=== PATIENT | male | born 1980 | race Caucasian/White ===

== ENCOUNTER 2017-07-12 10:30 | Emergency (ER) | payer MEDICARE ==
[~2017-07-12] VITALS: Ht 162.6 cm; Wt 53.0 kg
[~2017-07-12 10:30] MED LIST: ACET-1175 PO; AMOX500C3 PO; ASPCH81X PO; CLR10 PO; FURO-85 PO; METO-596 PO; MISCCAP80 PO; MULT-506 PO; POLY1POW2 PO; SENN-65 PO; VALP250C3 PO
[2017-07-12 10:33] VITALS: TEMP 36.7; Ht 162.6 cm; Wt 53.0 kg
[2017-07-12] MEDS ORDERED: TEMO1CAP PO (10:56)
[2017-07-12] MEDS ORDERED: ONDA-63 PO (10:57)
[2017-07-12] MEDS ORDERED: SENN1TAB91 PO (10:57)
--- NOTE | 2017-07-12 13:40 | DIAGNOSTIC IMAGING REPORT ---
PELVIS NO IV/ORAL CONT (CT) HISTORY: 36 years-old Male LBP/pelvic pain s/p fall acute pelvic pain status post fall. Initial exam. COMPARISON: CT lumbar spine of same day, CT abdomen and pelvis 06/24/2014 TECHNIQUE: Multiple axial CT images of the pelvis were obtained without IV contrast. A dose lowering technique was used consistent with the principals of CHRISTIANO. FINDINGS: The bones are moderately demineralized. Chronic deformity of the left femoral acetabular joint with subluxation and flattening of the left femoral head is noted suggesting nonambulatory state. Corticated bone fragments about the left hip are noted. There is mild facet arthropathy of the lower lumbar spine. The sacrum, iliac bones and pelvic ring are intact. The bilateral femora appear intact without acute fracture or dislocation. Annular disc bulging is noted at L4-L5 and L5-S1. Evaluation of the soft tissues demonstrates no acute intrapelvic abnormality. The appendix appears noninflamed. No focal soft tissue swelling. IMPRESSION: 1. No acute fracture or dislocation identified. 2. Moderate bone demineralization with chronic subluxation and remodeling of the left femoral acetabular joint. 3. Annular disc bulging noted at L4-L5 and L5-S1. The above report was generated using voice recognition software. It may contain grammatical, syntax or spelling errors. Electronically signed by: Jostin Foy M.D. 07/12/2017 1:38 PM Dictated Date/Time: 07/12/2017 1:33 PM
--- NOTE | 2017-07-12 14:05 | DIAGNOSTIC IMAGING REPORT ---
CT SCAN OF THE LUMBAR SPINE WITHOUT IV CONTRAST CLINICAL HISTORY: Fall with low back pain. COMPARISON STUDY: MRI of the thoracic spine dated 07/05/2016. TECHNIQUE: CT scan of the lumbar spine is performed from the lower thoracic spine to the sacrum. Images are reviewed in the axial, sagittal, and coronal planes. IV contrast was not administered for this examination. A dose lowering technique was utilized adhering to the principles of ALARA. FINDINGS: The skeletal structures are well mineralized. There is no evidence of fracture or malalignment involving the lumbar spine. Mild superior endplate compression deformities of T12 and L1 are similar to the 2016 thoracic spine MRI. Vertebral body height is otherwise maintained throughout the lumbar spine. Alignment is preserved. The transverse and spinous processes are intact. A segmentation abnormality involving the right transverse process of L1 is likely on a congenital basis. There is no evidence of spondylolysis. No lytic or blastic lesions are seen. The disc spaces are preserved. There is a large posterior disc bulge seen at L2-L3. Small disc bulges are noted at L4-L5 and L5-S1. The partially imaged sacrum and bony pelvis appear intact. The paraspinous soft tissues are normal in appearance. The partially imaged retroperitoneal structures are grossly unremarkable but incompletely evaluated. IMPRESSION: 1. There is no evidence of acute fracture or malalignment involving the lumbar spine. 2. Minimal chronic superior endplate compression deformities are again noted involving T12 and L1. Dictated: 07/12/2017 1:29 PM Transcribed: 07/12/2017 2:05 PM Jj Electronically signed by: Don Randle M.D. 07/12/2017 2:11 PM Dictated Date/Time: 07/12/2017 1:29 PM
--- NOTE | 2017-07-12 14:22 | EMERGENCY ROOM VISIT NOTE ---
ED Visit Note First contact with patient: 11:37 Staff note: I have reviewed the Patients chart and have discussed this case with my PA. I generally agree with the ED note and findings.
[2017-07-12 15:19] VITALS: BP 106/65; PULSE 59; O2SAT 97
--- NOTE | 2017-07-12 15:33 | EMERGENCY ROOM VISIT NOTE ---
History First contact with patient: 11:37 Chief Complaint: BACK PAIN Stated Complaint: LOWER BACK History of Present Illness The patient is a 36 year old male who presents to the Emergency Room with complaints of lower back and central pelvic pain. The patient has a history of cerebral palsy and Prilosec astrocytoma with progressive CSF spread. The patient is able to ambulate with a cane, and occasional use of a wheelchair. The patient believes that he tried to get out of bed this morning and got his legs wrapped in his bedsheets, covers and quilt. He does remember falling. He denies head injury or loss of consciousness. The patient was recently seen by Dr. Lopes at the [facility]. The patient was provided a prescription for physical therapy. The patient denies any history of chronic back pain. He does have severe osteoarthritis of the left hip. He currently denies any pain radiating down the extremities or of the back. He denies any other recent illness or injuries. He currently rates his discomfort a 5 out of 10. 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 Family History Diabetes mellitus Heart disease Social History Smoking Status: Never Smoker Alcohol Use: none Marital Status: single Housing Status: lives with family Occupation Status: employed Current/Historical Medications Scheduled Acetaminophen (Tylenol), 650 MG PO Q4HR PRN Amoxicillin (Amoxil), 4 CAP PO before dental proced Aspirin (Aspirin Chewable), 81 MG PO DAILY Metoprolol Tartrate (Lopressor), 150 MG PO BID Multivitamin (Multivitamin), 1 TAB PO DAILY Ondansetron (Ondansetron HCl), 8 MG PO Q8 Probiotic Product (Probiotic), 1 CAP PO DAILY Sennosides-Docusate Sodium (Ra Senna Plus 8.6-50 mg), 1 TAB PO DAILY Temozolomide (Temozolomide), 250 MG PO UD Valproic Acid (Valproic Acid), 500 MG PO QAM Valproic Acid (Valproic Acid), 250 MG PO QPM Scheduled PRN Polyethylene Glycol 3350 (Bulk (Polyethylene Glycol 3350), 17 GM PO DAILY PRN for Constipation Physical Exam Vital Signs Date Time Temp Pulse Resp B/P (MAP) Pulse Ox O2 Delivery O2 Flow Rate FiO2 07/12/17 13:42 98/57 07/12/17 12:12 70 18 104/68 100 Room Air 07/12/17 10:33 36.7 76 16 101/62 98 Room Air Physical Exam CONSTITUTIONAL: Healthy and well nourished. Alert and oriented X 3 with positive affect. Patient was resting on my initial presentation, and was easily arousable. The patient does not appear in any acute distress. HEENT: Patient has surgical incisions consistent with prior brain surgery. Pupils equal, round and reactive. No epistaxis, hemotympanum, subconjunctival hemorrhage, raccoon's eyes or Hamilton sign. NECK: Full active range of motion without discomfort. No tenderness to palpation through the central cervical spine or musculature. RESPIRATORY: Clear to auscultation bilaterally with no wheezing, crackles, rhonchi or stridor. CARDIOVASCULAR: Regular rate and rhythm with no murmurs, rubs or gallops. GASTROINTESTINAL: Bowel sounds present in all quadrants. Soft and nontender to palpation. MUSCULOSKELETAL: Examination shows tenderness to palpation through the lower central lumbar spine and right greater than left SI joint. Pelvis stable with rock. Negative logroll. Negative straight leg raise. INTEGUMENTARY: No rash or other significant dermatologic conditions noted. NEUROLOGIC: Lower extremities are sensory intact. Medical Decision & Procedures ER Provider Diagnostic Interpretation: Noncontrast CT of the pelvis does not show any acute fractures. Chronic changes to the left hip joint is noted: PELVIS NO IV/ORAL CONT (CT) HISTORY: 36 years-old Male LBP/pelvic pain s/p fall acute pelvic pain status post fall. Initial exam. COMPARISON: CT lumbar spine of same day, CT abdomen and pelvis 06/24/2014 TECHNIQUE: Multiple axial CT images of the pelvis were obtained without IV contrast. A dose lowering technique was used consistent with the principals of ALARA. FINDINGS: The bones are moderately demineralized. Chronic deformity of the left femoral acetabular joint with subluxation and flattening of the left femoral head is noted suggesting nonambulatory state. Corticated bone fragments about the left hip are noted. There is mild facet arthropathy of the lower lumbar spine. The sacrum, iliac bones and pelvic ring are intact. The bilateral femora appear intact without acute fracture or dislocation. Annular disc bulging is noted at L4-L5 and L5-S1. Evaluation of the soft tissues demonstrates no acute intrapelvic abnormality. The appendix appears noninflamed. No focal soft tissue swelling. IMPRESSION: 1. No acute fracture or dislocation identified. 2. Moderate bone demineralization with chronic subluxation and remodeling of the left femoral acetabular joint. 3. Annular disc bulging noted at L4-L5 and L5-S1. Noncontrast CT of the lumbar spine shows chronic endplate deformities of T12 and L1, otherwise no other acute fractures are appreciated. Radiologist report is as follows: CT SCAN OF THE LUMBAR SPINE WITHOUT IV CONTRAST CLINICAL HISTORY: Fall with low back pain. COMPARISON STUDY: MRI of the thoracic spine dated 07/05/2016. TECHNIQUE: CT scan of the lumbar spine is performed from the lower thoracic spine to the sacrum. Images are reviewed in the axial, sagittal, and coronal planes. IV contrast was not administered for this examination. A dose lowering technique was utilized adhering to the principles of ALARA. FINDINGS: The skeletal structures are well mineralized. There is no evidence of fracture or malalignment involving the lumbar spine. Mild superior endplate compression deformities of T12 and L1 are similar to the 2016 thoracic spine MRI. Vertebral body height is otherwise maintained throughout the lumbar spine. Alignment is preserved. The transverse and spinous processes are intact. A segmentation abnormality involving the right transverse process of L1 is likely on a congenital basis. There is no evidence of spondylolysis. No lytic or blastic lesions are seen. The disc spaces are preserved. There is a large posterior disc bulge seen at L2-L3. Small disc bulges are noted at L4-L5 and L5-S1. The partially imaged sacrum and bony pelvis appear intact. The paraspinous soft tissues are normal in appearance. The partially imaged retroperitoneal structures are grossly unremarkable but incompletely evaluated. IMPRESSION: 1. There is no evidence of acute fracture or malalignment involving the lumbar spine. 2. Minimal chronic superior endplate compression deformities are again noted involving T12 and L1. ED Course Patient history and physical exam were performed. Nurse's notes were reviewed. Vital signs were reviewed and were normal. The patient refused any analgesics. Noncontrast CT of the lumbar spine and pelvis are both normal, only showing chronic T12 and L1 superior endplate compression deformities. CT results were discussed with the patient and family. I did encourage them to contact his neurosurgeon to advise him of his fall. Family is hoping that they can get authorization for in-home therapy. The patient was instructed to return to the emergency department for any significantly worsening pain, profound weakness of the lower extremities outside a normal, bladder/bowel incontinence or other concerns. The patient was also seen and examined by Dr. Mauerr, ED attending physician, who agrees with workup and plan of care. The patient rated his discomfort a 3 out of 10 at the conclusion of my exam. Medical Decision Medication Reconcilliation Current Medication List: was personally reviewed by me Blood Pressure Screening Patient's blood pressure: Normal blood pressure Impression Primary Impression: Lumbar strain Additional Impressions: Pelvic contusion Fall in home Departure Information Referrals Eliseo Daily D.OZuleika (PCP) Patient Instructions My [facility] Problem Qualifiers Primary Impression: Lumbar strain Encounter type: initial encounter Qualified Codes: S39.012A - Strain of muscle, fascia and tendon of lower back, initial encounter Additional Impressions: Pelvic contusion Encounter type: initial encounter Qualified Codes: S30.0XXA - Contusion of lower back and pelvis, initial encounter Fall in home Encounter type: initial encounter Qualified Codes: W19.XXXA - Unspecified fall, initial encounter; Y92.099 - Unspecified place in other non-institutional residence as the place of occurrence of the external cause
== END 2017-07-12 15:35 | disposition home or self-care (01) ==
LOC: C.EDB 10:31
DX: S39.012A Strain of muscle, fascia and tendon of lower back, initial encounter (principal); S30.0XXA Contusion of lower back and pelvis, initial encounter; W06.XXXA Fall from bed, initial encounter; G40.909 Epilepsy, unspecified, not intractable, without status epilepticus; I10 Essential (primary) hypertension; F79 Unspecified intellectual disabilities; Z85.841 Personal history of malignant neoplasm of brain; Z98.2 Presence of cerebrospinal fluid drainage device; G80.9 Cerebral palsy, unspecified; M16.12 Unilateral primary osteoarthritis, left hip; Z83.3 Family history of diabetes mellitus; Z79.82 Long term (current) use of aspirin; Z79.899 Other long term (current) drug therapy

== ENCOUNTER 2018-10-23 12:16 | Observation (INO) ==
[2018-10-23] MEDS ORDERED: SODIUM CHLORIDE 0.9% 500 ML IV SCH (13:00)
--- NOTE | 2018-10-23 13:34 | XRay Report ---
XR chest 1V portable HISTORY: 37 years-old Male Dyspnea acute shortness of breath COMPARISON: Chest radiograph 10/17/2018 TECHNIQUE: Portable AP view of the chest FINDINGS: Patient is rotated to the left. Ventricular shunt catheter is again noted projecting over the right n maegan and right chest. Unchanged lucent portion of the catheter about the right neck. Mild left and lef t medical elevation with subsegmental left basilar opacities, unchanged suggesting atelectasis/scarri ng. Cardiomediastinal and hilar silhouettes are within normal limits. No pneumothorax or large pleura l effusion. The right lung is clear. Lungs are mildly hypoinflated. Degenerative changes of the shoulders and spine. IMPRESSION: 1. No acute process. 2. Chronic subsegmental left basilar opacities suggest atelectasis/scarring with mild left hemidiaphr agmatic elevation. The above report was generated using voice recognition software. It may contain grammatical, syntax o r spelling errors. Electronically signed by: Jostin Foy M.D. 10/23/2018 1:32 PM
[2018-10-23 13:56] LABS: Basophils # (auto) 0.05 K/uL (0-0.2); Basophils % (auto) 0.9 %; Eosinophils # (auto) 0.52 K/uL (0-0.5); Eosinophils % (auto) 9.4 %; Immature Granulocytes # (auto) 0.15 K/uL (0.00-0.02); Immature Granulocytes % (auto) 2.7 %; Lymphocytes # (auto) 0.36 K/uL (1.2-3.4); Lymphocytes % (auto) 6.5 %; Mean Corpuscular Hgb Conc 33.3 g/dL (32-36); Mean Corpuscular Volume 99.4 fL (80-100); Mean Platelet Volume 8.5 fL (7.4-10.4); Monocytes # (auto) 1.16 K/uL (0.11-0.59); Neutrophils # (auto) 3.29 K/uL (1.4-6.5); Neutrophils % (auto) 59.5 %; Nucleated RBC # (auto) 0.38 K/uL (0-0); Nucleated RBC % (auto) 6.8 %; Platelet Count 297 K/uL (130-400); RDW Coefficient of Variation 16.5 % (11.5-14.5); RDW Standard Deviation 57.1 fL (36.4-46.3); Red Blood Count 3.32 M/uL (4.7-6.1); White Blood Count 5.53 K/uL (4.8-10.8)
[2018-10-23 14:05] LABS: Base Excess VBG 2.6 mEq/L; HCO3 VBG 28 mmol/L; Oxygen Saturation VBG < 60.0 %; PCO2 VBG 48 mmHg (38-50); PO2 VBG 25 mmHg; pH VBG 7.39 (7.36-7.41)
[2018-10-23 14:14] LABS: Alanine Aminotransferase 49 U/L (12-78); Albumin Level 3.4 gm/dl (3.4-5.0); Aspartate Aminotransferase 40 U/L (15-37); BUN Creatinine Ratio 10.7 (10-20); Blood Urea Nitrogen 10 mg/dl (7-18); Calcium 8.7 mg/dl (8.5-10.1); Carbon Dioxide 25 mmol/L (21-32); Chloride 99 mmol/L (98-107); Creatinine Clr Calc Pharmacy 88.3 ml/min; Est GFR (African American) 117.9; Est GFR (Non-African American) 101.7; Glucose 100 mg/dl (70-99); Potassium 3.9 mmol/L (3.5-5.1); Sodium 132 mmol/L (136-145)
[2018-10-23 14:17] LABS: Anisocytosis Present; Basophilic Stippling 1+
[2018-10-23 14:19] LABS: Albumin Globulin Ratio 0.9 (0.9-2); Alkaline Phosphatase 45 U/L (45-117); Globulin 3.6 gm/dl (2.5-4.0); Troponin I < 0.015 ng/ml (0-0.045)
[2018-10-23 14:22] LABS: Partial Thromboplastin Ratio 0.9; Partial Thromboplastin Time 24.5 Seconds (21.0-31.0); Prothrombin Time 10.2 Seconds (9.0-12.0)
--- NOTE | 2018-10-23 15:48 | History & Physical Report ---
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 Had additional resection within 3 months. After that, he did quite well, had a recurrent disease in 2009, status post resection and final pathology at that time showing transformation into high-grade glioma. Imaging studies in May 2016 showed significant disease progression and he received combined chemotherapy with temozolomide 120 mg daily along with radiation treatment and his chemotherapy was reduced to 6 weekly because of low platelet count in April 2017. Completed total 1 year of temozolomide in October 2017 and again recent brain imaging studies in July 2018 showed evidence of recurrent disease and he was restarted back on temozolomide 250 mg once daily for 5 days in a 28- day cycle, this cycle he started on the Oct 2018 and he was also recently started on dapsone because his platelets were low,about 120 in the last week of September. He was given 1 month supply of dapsone, started about 14 days ago. He came in on 10/17 and was DCd 10/18 for the same reason-weak and tired. He had 1/2 Bottles of +Blood Cx as well. He returns today secondary to being weak and tired. He was supposed to have a follow-up appoint with Dr. Daily tomorrow, when the visiting nurse saw him today she checked his pulse ox on room air and it was in the low 70s showed she directed them to the ER. This is a 37-year-old male with history of astrocytoma status post resection, which converted to high-grade glioma, currently on chemo, presents with hypoxia and weakness ALLERGIES: BACTRIM, SULFA ANTIBIOTICS. PAST MEDICAL HISTORY: Bronchitis, Astrocytoma/Brain Glioma, Verebral palsy, Seizures, GERD, Hydrocephalus, Pneumonia, SBO, Dehydration PAST SURGICAL HISTORY: Central line placement. Central brain TOOL MAKER shunt, exploration of the abdomen, tracheostomy planned, brain tumor excision in 2009, removal of the bilateral hydrocele in 2011, ventricular catheter in 2009. SOCIAL HISTORY: Single. No smoking, no alcohol, no drug use. Lives with his mother. FAMILY HISTORY: Significant for sister has asthma, father has hypertension. Allergies Allergy/AdvReac Type Severity Reaction Status Date / Time Sulfa (Sulfonamide Allergy Severe RASH Verified 10/23/18 13:25 Antibiotics) Home Medications Home Medications Medication Instructions Recorded Confirmed Type metoprolol tartrate 150 mg PO BID 08/21/18 10/23/18 History omeprazole 20 mg PO QAM 08/21/18 10/23/18 History valproic acid 250 mg PO QPM 08/21/18 10/23/18 History valproic acid 500 mg PO QAM 08/21/18 10/23/18 History amoxicillin 2,000 mg PO DIRECTED PRN 10/17/18 10/23/18 History dapsone 100 mg PO QPM 10/17/18 10/23/18 History diazepam 1 applic OR DIRECTED PRN 10/17/18 10/23/18 History lactobacillus combination no.4 1 cap PO QAM 10/17/18 10/23/18 History [Probiotic] multivitamin 1 tab PO QAM 10/17/18 10/23/18 History ondansetron 8 mg TRANSLINGUAL Q8H PRN 10/17/18 10/23/18 History polyethylene glycol 3350 [Miralax] 17 g PO DAILY PRN 10/17/18 10/23/18 History sennosides-docusate sodium [Senna 1 tab PO DAILY 10/17/18 10/23/18 History Plus] Past Med/Surg History Medical History Pneumonia Glioma of brain Cerebral palsy GERD (gastroesophageal reflux disease) Intellectual disability Seizure Surgical History History of brain shunt History of craniotomy Social History marital status: Single Current Living Situation: Parent Other Information That Helps Us Care for You: No Feels Safe at Home: Yes Safety Concerns: Feels Safe At This Time Smoking Status: Never smoker Hx Alcohol Use: No Hx Substance Use: No Beliefs That Will Affect Care: None Preferred Language: Ghanaian Communication Ability: Effective Physical Exam 2 Vital Signs (Past 24 Hours): Last Vital Signs Temp 36.7 C 10/23/18 12:18 Pulse 75 10/23/18 14:31 Resp 17 10/23/18 14:31 BP 111/64 10/23/18 14:31 Pulse Ox 94 10/23/18 14:31 ROS-No Headache, No Visual Changes, No Fever, No Chills, No Neck Pain or Stiffness, No Chest Pain, No Palpitations, No GRIFFTIH, No Cough, No Sputum, No Wheezing, No Abdominal Pain, No Diarrhea, No Hematemesis, No Hemoptysis, No Unexpected Weight Loss, No Flank pain, No Melena, No Hematochezia, No Frequency , No Urgency, No Burning, No Hematuria, No Rashes, No Diaphoresis. Appetite is Normal, Weak, SOB Physical Exam Gen-AAO x 3, NAD, Afebrile, Pleasant Head-Scar from brain surgery, EOMI, PERRLA, Anicteric Sclera, No Posterior Pharyngeal Erythema Neck-Supple, No JVD, No Thyromegaly, No Masses, No LAD, No Bruits Lungs-Clear to Auscultation Bilaterally, No Rales, No Rhonchi, No Wheezing, No Crepitus Chest-No S4, +S1, +S2, No S3, No Murmurs, No Rubs, No Gallops, No Ectopy Abdomen-Soft, Bowel Sounds Present, Non Tender, Non Distended, No Hepatomegaly, No Splenomegaly, No Palpable Masses, No Rebound, No Rigidity, No Guarding Musculoskeletal-Full Range of Motion Bilaterally, No CVAT Extremities-No Cyanosis, No Clubbing, No Edema Nuero-Cranial Nerves II-XII grossly intact, Motor WNL, DTRs WNL, Strength WNL, No Focal Psych-Normal Mood Results & Data Laboratory Results Allergies Sulfa (Sulfonamide Antibiotics) Allergy (Severe, Verified 10/23/18 13:25) RASH Height/Weight/Isolation Height 5 ft 4 in Weight 60 kg Chemistry 10/23/18 13:47 Sodium 132 L Potassium 3.9 Chloride 99 Carbon Dioxide 25 Anion Gap 8.0 BUN 10 Creatinine 0.94 Glucose 100 H Diagnostic Findings Chest x-ray, IMPRESSION: 1. No acute process. 2. Chronic subsegmental left basilar opacities suggest atelectasis/scarring with mild left hemidiaphragmatic elevation. Code Status & VTE Plan Code Status Full VTE Prophylaxis Plan VTE Prophylaxis will be ordered: Yes
[2018-10-23] MEDS ORDERED: ACETAMINOPHEN 325 MG TAB PO PRN (17:36)
[2018-10-23] MEDS ORDERED: ONDANSETRON 8MG OD TAB PO PRN (17:36)
--- NOTE | 2018-10-23 19:04 | Emergency Department Note ---
Entered by lAbania Workman acting as a scribe for History of Present Illness General Chief complaint: Weakness Stated complaint: LOW OXGYEN Source: patient and family () Limitations: no limitations History of Present Illness Provider complaint: low oxygen Onset (ago): hour(s) (earlier in the day) Associated symptoms: + denies other symptoms (runny nose, stomach pain, painful urinations) and + other (+fatigue, +bilateral leg pain); no chest pain and no cough The patient is a 37 year old male who presents to the Emergency Room with complaints of low oxygen that started earlier in the morning. The patient states that he has fatigue and bilateral leg pain. The patient states that he has been able to walk which is unusual, although he always has a chronic deficit on the left side. The patient denies coughing, runny nose, stomach pain , painful urinations, and chest pain. Per , the patient was in the ED last week for low oxygen around 74. The patient states that he doesn't wear oxygen at home. Per , the patient has a history of a brain tumor and was undergoing chemotherapy for 5 days last week. Per , the patient had a fall and went into a seizure one week ago. The patient states that he does not take blood thinner medication. Home Medications Home Medications Medication Instructions Recorded Confirmed Type metoprolol tartrate 150 mg PO BID 08/21/18 10/23/18 History omeprazole 20 mg PO QAM 08/21/18 10/23/18 History valproic acid 250 mg PO QPM 08/21/18 10/23/18 History valproic acid 500 mg PO QAM 08/21/18 10/23/18 History amoxicillin 2,000 mg PO DIRECTED PRN 10/17/18 10/23/18 History dapsone 100 mg PO QPM 10/17/18 10/23/18 History diazepam 1 applic [place] DIRECTED PRN 10/17/18 10/23/18 History lactobacillus combination no.4 1 cap PO QAM 10/17/18 10/23/18 History [Probiotic] multivitamin 1 tab PO QAM 10/17/18 10/23/18 History ondansetron 8 mg TRANSLINGUAL Q8H PRN 10/17/18 10/23/18 History polyethylene glycol 3350 [Miralax] 17 g PO DAILY PRN 10/17/18 10/23/18 History sennosides-docusate sodium [Senna 1 tab PO DAILY 10/17/18 10/23/18 History Plus] Allergies Allergy/AdvReac Type Severity Reaction Status Date / Time Sulfa (Sulfonamide Allergy Severe RASH Verified 10/23/18 13:25 Antibiotics) Past Med/Surg History Medical History Pneumonia Glioma of brain Cerebral palsy GERD (gastroesophageal reflux disease) Intellectual disability Seizure Surgical History History of brain shunt History of craniotomy Social History marital status: Single Current Living Situation: Parent Other Information That Helps Us Care for You: No Feels Safe at Home: Yes Safety Concerns: Feels Safe At This Time Smoking Status: Never smoker Hx Alcohol Use: No Hx Substance Use: No Beliefs That Will Affect Care: None Preferred Language: [place] Communication Ability: Effective Review of Systems See HPI for pertinent positives & negatives. and A total of 10 systems reviewed and were otherwise negative Physical Exam Vital Signs Vital Signs - 24 hr 10/23/18 12:18 10/23/18 14:00 10/23/18 14:31 Temperature 36.7 C Temperature Source Oral Sepsis Recent Fever Within 48 Hours No Sepsis Action Taken by Nursing No Action Required Pulse Rate 77 Pulse Rate [Apical] 75 75 Pulse Rhythm Regular Pulse Rhythm [Apical] Pulse Strength Normal Pulse Strength [Apical] Respiratory Rate 20 18 17 Respiratory Effort / Characteristics Non-Labored Spontaneous Respiratory Depth Normal Normal Respiratory Pattern Regular Blood Pressure 96/62 L Blood Pressure [Right Arm] 117/73 111/64 Blood Pressure Mean 73 Blood Pressure Mean [Right Arm] 87 79 Blood Pressure Position [Right Arm] Pulse Oximetry 85 L 95 94 Oxygen Delivery Method Room Air Nasal Cannula Nasal Cannula Oxygen Flow Rate 4 4 10/23/18 16:18 10/23/18 17:39 Temperature 36.8 C Temperature Source Oral Sepsis Recent Fever Within 48 Hours Sepsis Action Taken by Nursing Pulse Rate Pulse Rate [Apical] 70 Pulse Rhythm Pulse Rhythm [Apical] Regular Pulse Strength Pulse Strength [Apical] Normal Respiratory Rate 20 Respiratory Effort / Characteristics Non-Labored Spontaneous Non-Labored Respiratory Depth Normal Normal Respiratory Pattern Regular Regular Blood Pressure Blood Pressure [Right Arm] 120/80 Blood Pressure Mean Blood Pressure Mean [Right Arm] 93 Blood Pressure Position [Right Arm] Lying Pulse Oximetry 90 Oxygen Delivery Method Nasal Cannula Nasal Cannula Oxygen Flow Rate 4 4 GENERAL: Sitting up in bed, no acute distress, nontoxic EYE EXAM: normal conjunctiva, PERRL and EOM's grossly intact HEAD: Multiple old incisions. OROPHARYNX: no exudate, no erythema, lips, buccal mucosa, and tongue normal and mucous membranes are dry. NECK: supple, no nuchal rigidity, no adenopathy, non-tender LUNGS: Clear to auscultation. Normal chest wall mechanics HEART: no murmurs, S1 normal and S2 normal ABDOMEN: abdomen soft, non-tender, normo-active bowel sounds, no masses, no rebound or guarding. BACK: Back is symmetrical on inspection and there is no deformity, no midline tenderness, no CVA tenderness. SKIN: no rashes and no bruising UPPER EXTREMITIES: upper extremities are grossly normal. LOWER EXTREMITIES: No pitting edema. NEURO EXAM: Awake, alert, following commands. Old weakness of left side, no weakness of right side. Course ED COURSE: Vital signs were reviewed and showed to be hypoxic. The patients medical record was reviewed The above diagnostic studies were performed and reviewed. ED treatments and interventions as stated above. 1253: The patient was evaluated in room B10. A complete history and physical examination was performed. 1441: Upon reevaluation, the patient is feeling better. I discussed my findings with the patient and he understands and agrees with the treatment plan. Based on the patients age, coexisting illnesses, exam and lab findings the decision to treat as an inpatient was made. The patient remained stable while under my care. 1501: The patient will be evaluated for further management by Manjula Gomez PA-C for [facility]. Consultations Consultation #1: Manjula Gomez PA-C for [facility] Time: 15:01 Administered Medications Discontinued Medications Sodium Chloride (Nss) 500 mls @ 999 mls/hr IV .Q31M HELADIO Stop: 10/23/18 13:30 Last Infusion: 10/23/18 14:53 Dose: Infusion: 10/23/18 14:53 Dose: Admin: 10/23/18 13:46 Dose: 999 mls/hr Medical Decision Making Differential Diagnosis Differential diagnosis includes etiologies such as ectopic , dysfunction uterine bleeding, bleeding dyscrasia, trauma, infection, as well as others were entertained. Medical Records Attestation: I reviewed the patient's medical records. Home Medications Current Medication List: was personally reviewed by me Laboratory Data Attestation: I reviewed the patient's lab results. Result diagrams: 10/23/18 13:47 10/23/18 13:47 Lab Results 10/23/18 10/23/18 10/23/18 Range/Units 13:47 13:47 13:47 WBC 5.53 (4.8-10.8) K/uL RBC 3.32 L (4.7-6.1) M/uL Hgb 11.0 L (14.0-18.0) g/dL Hct 33.0 L (42-52) % MCV 99.4 (80-100) fL MCH 33.1 (25-34) pg MCHC 33.3 (32-36) g/dL RDW Std Deviation 57.1 H (36.4-46.3) fL RDW Coeff of Mathew 16.5 H (11.5-14.5) % Plt Count 297 (130-400) K/uL MPV 8.5 (7.4-10.4) fL Immature Gran % (Auto) 2.7 % Neut % (Auto) 59.5 % Lymph % (Auto) 6.5 % [place] % (Auto) 21.0 % Eos % (Auto) 9.4 % Baso % (Auto) 0.9 % Immature Gran # (Auto) 0.15 H (0.00-0.02) K/uL Neut # (Auto) 3.29 (1.4-6.5) K/uL Lymph # (Auto) 0.36 L (1.2-3.4) K/uL [place] # (Auto) 1.16 H (0.11-0.59) K/uL Eos # (Auto) 0.52 H (0-0.5) K/uL Baso # (Auto) 0.05 (0-0.2) K/uL Absolute Nucleated RBC 0.38 H (0-0) K/uL Nucleated RBC % (auto) 6.8 % Basophilic Stippling 1+ Anisocytosis Present PT 10.2 (9.0-12.0) Seconds INR 1.0 (0.9-1.1) APTT 24.5 (21.0-31.0) Seconds PTT Ratio 0.9 VBG pH (7.36-7.41) VBG pCO2 (38-50) mmHg VBG pO2 mmHg VBG HCO3 mmol/L VBG O2 Saturation % VBG Base Excess mEq/L Barometric Pressure mm/Hg Sodium 132 L (136-145) mmol/L Potassium 3.9 (3.5-5.1) mmol/L Chloride 99 (98-107) mmol/L Carbon Dioxide 25 (21-32) mmol/L Anion Gap 8.0 (3-11) BUN 10 (7-18) mg/dl Creatinine 0.94 (0.6-1.4) mg/dl Est Cr Clr Drug Dosing 88.3 ml/min Est GFR ( Amer) 117.9 Est GFR (Non-Af Amer) 101.7 BUN/Creatinine Ratio 10.7 (10-20) Glucose 100 H (70-99) mg/dl Calcium 8.7 (8.5-10.1) mg/dl Total Bilirubin 1.0 (0.1-1) mg/dl AST 40 H (15-37) U/L ALT 49 (12-78) U/L Alkaline Phosphatase 45 (45-117) U/L Troponin I < 0.015 (0-0.045) ng/ml Total Protein 7.0 (6.4-8.2) gm/dl Albumin 3.4 (3.4-5.0) gm/dl Globulin 3.6 (2.5-4.0) gm/dl Albumin/Globulin Ratio 0.9 (0.9-2) 10/23/18 Range/Units 13:47 WBC (4.8-10.8) K/uL RBC (4.7-6.1) M/uL Hgb (14.0-18.0) g/dL Hct (42-52) % MCV (80-100) fL MCH (25-34) pg MCHC (32-36) g/dL RDW Std Deviation (36.4-46.3) fL RDW Coeff of Mathew (11.5-14.5) % Plt Count (130-400) K/uL MPV (7.4-10.4) fL Immature Gran % (Auto) % Neut % (Auto) % Lymph % (Auto) % [place] % (Auto) % Eos % (Auto) % Baso % (Auto) % Immature Gran # (Auto) (0.00-0.02) K/uL Neut # (Auto) (1.4-6.5) K/uL Lymph # (Auto) (1.2-3.4) K/uL [place] # (Auto) (0.11-0.59) K/uL Eos # (Auto) (0-0.5) K/uL Baso # (Auto) (0-0.2) K/uL Absolute Nucleated RBC (0-0) K/uL Nucleated RBC % (auto) % Basophilic Stippling Anisocytosis PT (9.0-12.0) Seconds INR (0.9-1.1) APTT (21.0-31.0) Seconds PTT Ratio VBG pH 7.39 (7.36-7.41) VBG pCO2 48 (38-50) mmHg VBG pO2 25 mmHg VBG HCO3 28 mmol/L VBG O2 Saturation < 60.0 % VBG Base Excess 2.6 mEq/L Barometric Pressure 727.5 mm/Hg Sodium (136-145) mmol/L Potassium (3.5-5.1) mmol/L Chloride (98-107) mmol/L Carbon Dioxide (21-32) mmol/L Anion Gap (3-11) BUN (7-18) mg/dl Creatinine (0.6-1.4) mg/dl Est Cr Clr Drug Dosing ml/min Est GFR ( Amer) Est GFR (Non-Af Amer) BUN/Creatinine Ratio (10-20) Glucose (70-99) mg/dl Calcium (8.5-10.1) mg/dl Total Bilirubin (0.1-1) mg/dl AST (15-37) U/L ALT (12-78) U/L Alkaline Phosphatase (45-117) U/L Troponin I (0-0.045) ng/ml Total Protein (6.4-8.2) gm/dl Albumin (3.4-5.0) gm/dl Globulin (2.5-4.0) gm/dl Albumin/Globulin Ratio (0.9-2) Imaging Data Radiologist's Impression: Radiology results have been interpreted by the radiologist and reviewed by me. XR chest 1V portable HISTORY: 37 years-old Male Dyspnea acute shortness of breath COMPARISON: Chest radiograph 10/17/2018 TECHNIQUE: Portable AP view of the chest FINDINGS: Patient is rotated to the left. Ventricular shunt catheter is again noted projecting over the right neck and right chest. Unchanged lucent portion of the catheter about the right neck. Mild left and left medical elevation with subsegmental left basilar opacities, unchanged suggesting atelectasis/scarring. Cardiomediastinal and hilar silhouettes are within normal limits. No pneumothorax or large pleural effusion. The right lung is clear. Lungs are mildly hypoinflated. Degenerative changes of the shoulders and spine. IMPRESSION: 1. No acute process. 2. Chronic subsegmental left basilar opacities suggest atelectasis/scarring with mild left hemidiaphragmatic elevation. The above report was generated using voice recognition software. It may contain grammatical, syntax or spelling errors. Electronically signed by: Jostin Foy M.D. 10/23/2018 1:32 PM ECG Data Attestation: I personally reviewed and interpreted this ECG as follows: Indication: SOB/dyspnea Rate (beats per minute): 71 Rhythm: sinus rhythm Findings: + ectopy; no left axis deviation Change: no significant change Blood Pressure Blood Pressure Findings: Low blood pressure Blood Pressure Disposition: elevated BP felt to be situational MDM Narrative Patient is a 37-year-old male with a past medical history of glioblastoma the presents the ER for an episode of hypoxia with a pulse ox in the 70s. He was recently admitted and discharged with the same complaint about a week ago. He had a CTA of the chest on 1211 which was completely negative for any PEs. He was found to be 86% on room air here. He was placed on 4 L nasal cannula. CBC along with BMP, INR VBG LFTs and troponin were remarkable for a mild hyponatremia 132. Chest x-ray shows no acute infiltrate. Patient malerupted at bedside. EKG was unremarkable. I discussed with the hospitalist will be observed for further workup. Impression & Plan Weakness, Hypoxia Discharge Plan Visit Data *Final* Discharge Date/Time: 10/23/18 17:04 Chief Complaint: Weakness Stated Complaint: LOW OXGYEN ED Provider: Jorge Maurer Discharge Problem: Weakness, Hypoxia Patient Disposition: Admitted As Inpatient Discharge Instructions Interventions: ED Discharge Assessment Last Done: 10/23/18 17:04 The scribe's documentation has been prepared under my direction and personally reviewed by me in its entirety. I confirm that the note above accurately reflects all work, treatment, procedures, and medical decision making performed by me.
[2018-10-23] MEDS: METOPROLOL TARTRATE 50 MG TAB PO SCH (20:59)
[2018-10-23] MEDS ORDERED: VALPROIC ACID 250 MG/5 ML UDP PO SCH (21:00)
[2018-10-23] MEDS: ALBUT/IPRATROP 3MG/0.5MG NEB 3 ML VIAL NEB SCH ×2 (21:34→23:13)
[2018-10-23] MEDS: DIVALPROEX DELAY RELEASE 250 MG TABEC PO SCH (21:47)
[2018-10-23] MEDS: HEPARIN SOD 5,000 UNIT/0.5 ML VIAL SQ SCH (21:49)
[2018-10-24] MEDS: ALBUT/IPRATROP 3MG/0.5MG NEB 3 ML VIAL NEB SCH ×6 (03:16→23:27)
[2018-10-24] MEDS: HEPARIN SOD 5,000 UNIT/0.5 ML VIAL SQ SCH ×3 (06:04→21:02)
[2018-10-24 07:48] LABS: Hemoglobin 10.7 g/dL (14.0-18.0); Mean Corpuscular Hgb Conc 33.4 g/dL (32-36); Mean Corpuscular Volume 100.3 fL (80-100); Mean Platelet Volume 9.1 fL (7.4-10.4); Nucleated RBC # (auto) 0.22 K/uL (0-0); Nucleated RBC % (auto) 4.4 %; Platelet Count 281 K/uL (130-400); RDW Coefficient of Variation 17.3 % (11.5-14.5); RDW Standard Deviation 58.1 fL (36.4-46.3); Red Blood Count 3.19 M/uL (4.7-6.1); White Blood Count 4.99 K/uL (4.8-10.8)
[2018-10-24 07:56] LABS: Prothrombin Time 9.9 Seconds (9.0-12.0)
[2018-10-24 08:22] LABS: BUN Creatinine Ratio 9.1 (10-20); Calcium 8.7 mg/dl (8.5-10.1); Creatinine Clr Calc Pharmacy 91.3 ml/min; Est GFR (African American) 122.6; Est GFR (Non-African American) 105.8
[2018-10-24] MEDS: DIVALPROEX DELAY RELEASE 500 MG TAB PO SCH (08:42)
[2018-10-24] MEDS: DOCUSATE SODIUM/SENNA 50/8.6MG TAB PO SCH (08:43)
[2018-10-24] MEDS: MULTIVITAMIN TAB PO SCH (08:43)
[2018-10-24] MEDS: METOPROLOL TARTRATE 50 MG TAB PO SCH ×2 (08:43→21:01)
[2018-10-24] MEDS: PANTOprazole 40 MG TAB PO SCH (08:43)
[2018-10-24] MEDS: LACTOBACILLUS ACIDOPHILUS (FLORANEX) TAB PO SCH (08:43)
[2018-10-24] MEDS ORDERED: VALPROIC ACID 500 MG/10 ML UDP PO SCH (09:00)
[2018-10-24] MEDS ORDERED: POLYETHYLENE (MIRALAX) 17 GM PACK PO PRN (09:00)
--- NOTE | 2018-10-24 13:55 | Neurology Consultation ---
Date of Consultation October 24, 2018 Assessment & Plan (1) ZONING ENGINEER (ventriculoperitoneal) shunt status: 1. low O2 stat evaluate by cardiology and pulmonary 2. shunt on right pumping left looks depressed 3. CT head may help with comparison however he is scheduled for a MRI with 3D at [place] October 30 4. PT/OT for discharge needs 5. continue current medication regime 6. valproic acid level therapeutic further recommendation to follow Supervising Physician Co-Signing Physician Notes I have seen and discussed above patient with Dr Sorin Nevarez, neurology I have examined this young man interviewed both he and his mother, reviewed the available records from [facility], reviewed the current available records, laboratory studies echocardiographic studies and I performed an examination. I have discussed the above conclusions with Roxanna Barnett and agree fully with her recommendations. At this point I suspect that the primary cause of this young man's weakness is persistent hypoxemia and agree that a cardiopulmonary evaluation is indicated. Dr. Ko is currently looking over the echocardiographic findings In terms of his neurologic status he seems to be at what I feel is likely his baseline. No seizure activity has been reported. His shunt seemed to be functioning at least on the basis of gross examination his valproic acid level is normal. His exam shows a left hemiparesis which according to his mother is fairly stable and perhaps some additional weakness of the right lower extremity which is reached a point that he no longer is able to ambulate without assistance. 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 For the above reasons that I do not think there is a primary neurologic problem involved here or at least one that is new to the current situation. We will be contacting his neuro-oncologist at [facility] by staff messaging tomorrow to ascertain if she has any further recommendations. He is scheduled to have a three-dimensional MRI done apparently this coming Tuesday and hopefully he will be discharged by then will be able to have the study performed. We will check by tomorrow to assess the situation but at some point I believe neurology will be signing off as we are not adding any additional value to his diagnostic workup at this point. 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 Imaging studies in May 2016 showed significant disease progression and he received combined chemotherapy with temozolomide 120 mg daily along with radiation treatment and his chemotherapy was reduced to 6 weekly because of low platelet count in April 2017. Completed total 1 year of temozolomide in October 2017 and again recent brain imaging studies in July 2018 showed evidence of recurrent disease and he was restarted back on temozolomide 250 mg once daily for 5 days in a 28-day cycle, this cycle he started on the Oct and he was also recently started on dapsone because his platelets were low, about 120 in the last week of September. He was given 1 month supply of dapsone, started about 14 days ago. He came in on 10/17 ED for weak and tired. He had 1/2 Bottles of +Blood Cx as well. He returns today secondary to being weak and tired. His home nurse noted his O2 low 70s and directed them to the ER. Today he states he still feels weak. His mom states his seizure were always petit mal but now when he gets anxious he gets himself convulsing. denies CP, abdominal pain, N, V. Allergies Allergy/AdvReac Type Severity Reaction Status Date / Time Sulfa (Sulfonamide Allergy Severe RASH Verified 10/23/18 13:25 Antibiotics) Home Medications Home Medications Medication Instructions Recorded Confirmed Type metoprolol tartrate 150 mg PO BID 08/21/18 10/23/18 History omeprazole 20 mg PO QAM 08/21/18 10/23/18 History valproic acid 250 mg PO QPM 08/21/18 10/23/18 History valproic acid 500 mg PO QAM 08/21/18 10/23/18 History amoxicillin 2,000 mg PO DIRECTED PRN 10/17/18 10/23/18 History dapsone 100 mg PO QPM 10/17/18 10/23/18 History diazepam 1 applic [place] DIRECTED PRN 10/17/18 10/23/18 History lactobacillus combination no.4 1 cap PO QAM 10/17/18 10/23/18 History [Probiotic] multivitamin 1 tab PO QAM 10/17/18 10/23/18 History ondansetron 8 mg TRANSLINGUAL Q8H PRN 10/17/18 10/23/18 History polyethylene glycol 3350 [Miralax] 17 g PO DAILY PRN 10/17/18 10/23/18 History sennosides-docusate sodium [Senna 1 tab PO DAILY 10/17/18 10/23/18 History Plus] divalproex [Depakote] 250 mg PO PM 10/23/18 10/23/18 History divalproex [Depakote] 500 mg PO QAM 10/23/18 10/23/18 History Patient History Medical History Pneumonia Glioma of brain Cerebral palsy GERD (gastroesophageal reflux disease) Intellectual disability Seizure Surgical History History of brain shunt History of craniotomy Social History marital status: Single Current Living Situation: Parent Other Information That Helps Us Care for You: No Feels Safe at Home: Yes Safety Concerns: Feels Safe At This Time Smoking Status: Never smoker Hx Alcohol Use: No Hx Substance Use: No Beliefs That Will Affect Care: None Communication Ability: Effective Physical Exam 2 Vital Signs (Past 24 Hours): Last Vital Signs Temp 36.3 C L 10/24/18 11:00 Pulse 74 10/24/18 11:34 Resp 16 10/24/18 11:34 BP 108/70 10/24/18 11:00 Pulse Ox 97 10/24/18 11:34 Physical Exam: Constitutional: sitting in bed side chair O2 NC, right shunt pumps and refills Ears, Nose, Mouth and Throat: mucous membranes moist, no injection and skin normal, eyes normal Cardiovascular: normal S-1 and S-2 and regular rate and rhythm Respiratory: course BS Musculoskeletal: 1+ peripheral edema contracture on bilateral LE Skin: no stigmata of neurocutaneous disease noted and normal and intact Eyes: extraocular muscles intact (EOMI) and pupils equal, round and reactive to light (PERRL),horizontal nystagmus NEUROLOGIC EXAMINATION: Mental status: Alert and interactive Oriented hospital and aware he is here for SOB Oriented to person Speech fluent with no evidence of aphasia Cranial Nerves misshaped head with numerous scars from surgery Reflexes: Deep tendon reflexes were symmetrical and graded 2/5. Plantar responses were flexor. Coordination: finger to nose dysmetric Gait/Stance: Posture sitting in bed side chair. Strength: right hand biceps triceps 5/5, left hand contracture biceps triceps 3/5 hip flex against resistance, contracture of feet fixed position Results & Data Laboratory Results Abnormal lab results 10/23/18 10/24/18 10/24/18 Range/Units 13:47 07:31 07:31 RBC 3.19 L (4.7-6.1) M/uL Hgb 10.7 L (14.0-18.0) g/dL Hct 32.0 L (42-52) % MCV 100.3 H (80-100) fL RDW Std Deviation 58.1 H (36.4-46.3) fL RDW Coeff of Mathew 17.3 H (11.5-14.5) % Absolute Nucleated RBC 0.22 H (0-0) K/uL Sodium 132 L 134 L (136-145) mmol/L BUN/Creatinine Ratio 9.1 L (10-20) Glucose 100 H (70-99) mg/dl AST 40 H (15-37) U/L Diagnostic Findings CXR- No acute process. Chronic subsegmental left basilar opacities suggest atelectasis/scarring with mild left hemidiaphragmatic elevation.
--- NOTE | 2018-10-24 15:20 | Cardiology Consultation ---
Date of Consultation October 24, 2018 Impression: Vague weakness Discussion/recommendations: At present based on vital signs, I am not convinced the patient has significant hypoxia. His pulse oximetry appears to be in the mid 90s at present, however I guess he is not exerting himself. He is comfortable. There is no tachycardia. No tachypnea. He has been afebrile. He underwent a transthoracic echocardiogram performed earlier today with normal biventricular systolic function. I was concerned because of findings of a mobile echodensityNoted in his right atrium. The appearance seems consistent with a catheter. I reviewed the patient's recent CT of the chest report, and reviewed the images independently as well as with radiology. Ultimately After review of the patient's outpatient/[facility] record, I found a operative report of the procedure performed at [facility] dated 08/04/2010. Operative report describes a preoperative diagnosis of hydrocephalus with malignant tumor of the right hemisphere of the brain and a pseudocyst formation around an abdominal shunt catheter. The operative report describes converting the patient's ventriculoperitoneal shunt to a ventricular-atrial shunt. The distal portion of the shunt was placed into the internal jugular vein, and the report describes that the distal end of the shunt was Infected intravascular at the level of the right atrium. The echodensity therefore noted on the echocardiogram is compatible with the distal portion of the catheter. I had initially discussed proceeding with a transesophageal echocardiogram for further assessment of the right atrial mass. I discussed this with the patient and his mother. She has since returned home. At this time I plan to hold the patient's breakfast tomorrow, and will reassess the need for transesophageal echocardiogram. It is possible that the distal end of the catheter has a superimposed thrombus that could therefore embolize and cause pulmonary emboli, however the patient had a recent CT angiogram with no evidence of pulmonary embolism. In summary the right atrial mass is actually the previously placed catheter is a ventricular (brain) to right atrial shunt, entering the vasculature at the level of the right Internal jugular vein. In terms of other cardiac causes of patient's symptoms, I think the likelihood of underlying endocarditis is low. He has no fever,Recent blood cultures were likely contaminant.There is no evidence of cardiomyopathy, and his symptoms are not suggestive of angina. History of Present Illness Attending Physician: Chucho Hyatt MD History of Present Illness Vivek Lawton is a 37 year old male seen in cardiology consultation per the request of Dr Villatoro and Dr Hyatt for the evaluation of recent fatigue, and hypoxia. The patient's recent and past medical records were reviewed. I interviewed and examined the patient, and his mother had been present and added additional history. This is his second admission in a period of 6 days for complaint of hypoxia and weakness. The patient apparently ambulates with the assistance of a four-point cane, but he has not been able to do this especially over the last week due to fatigue. There is been concerned about resting hypoxia, I see one pulse ox reading as low as 85%, otherwise they have been in the 90s. The patient states that his legs have hurt, but otherwise offers no significant complaint. Denies chest discomfort. 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 He was given 1 month supply of dapsone, started about 14 days ago. Allergies Allergy/AdvReac Type Severity Reaction Status Date / Time Sulfa (Sulfonamide Allergy Severe RASH Verified 10/23/18 13:25 Antibiotics) Home Medications Home Medications Medication Instructions Recorded Confirmed Type metoprolol tartrate 150 mg PO BID 08/21/18 10/23/18 History omeprazole 20 mg PO QAM 08/21/18 10/23/18 History valproic acid 250 mg PO QPM 08/21/18 10/23/18 History valproic acid 500 mg PO QAM 08/21/18 10/23/18 History amoxicillin 2,000 mg PO DIRECTED PRN 10/17/18 10/23/18 History dapsone 100 mg PO QPM 10/17/18 10/23/18 History diazepam 1 applic [place] DIRECTED PRN 10/17/18 10/23/18 History lactobacillus combination no.4 1 cap PO QAM 10/17/18 10/23/18 History [Probiotic] multivitamin 1 tab PO QAM 10/17/18 10/23/18 History ondansetron 8 mg TRANSLINGUAL Q8H PRN 10/17/18 10/23/18 History polyethylene glycol 3350 [Miralax] 17 g PO DAILY PRN 10/17/18 10/23/18 History sennosides-docusate sodium [Senna 1 tab PO DAILY 10/17/18 10/23/18 History Plus] divalproex [Depakote] 250 mg PO PM 10/23/18 10/23/18 History divalproex [Depakote] 500 mg PO QAM 10/23/18 10/23/18 History Patient History Medical History Pneumonia Glioma of brain Cerebral palsy GERD (gastroesophageal reflux disease) Intellectual disability Seizure Surgical History History of brain shunt History of craniotomy Social History marital status: Single Current Living Situation: Parent Other Information That Helps Us Care for You: No Feels Safe at Home: Yes Safety Concerns: Feels Safe At This Time Smoking Status: Never smoker Hx Alcohol Use: No Hx Substance Use: No Beliefs That Will Affect Care: None Communication Ability: Effective Review of Systems 10 point review of systems is reviewed, somewhat limited due to the patient's cognitive impairment, but otherwise negative. Physical Exam 2 Vital Signs (Past 24 Hours): Last Vital Signs Temp 36.3 C L 10/24/18 11:00 Pulse 74 10/24/18 11:34 Resp 16 10/24/18 11:34 BP 108/70 10/24/18 11:00 Pulse Ox 97 10/24/18 11:34 Constitutional: no acute distress Neck: Incisions noted over the midportion of the right neck from past surgery Respiratory: normal respiratory effort, lungs clear to auscultation Cardiovascular: RRR, no murmur, no edema Chest (Breasts): Additional Comments: Well-healed midline incision anteriorly from past cyst removal surgery, at the distal aspect of the sternum Skin: no rashes, warm and dry Neurologic: Mild leg weakness, consistent with patient's history Results & Data Diagnostic Findings EKG performed 10/23/18 reviewed independently revealed sinus rhythm at 71 bpm, mild nonspecific T wave abnormality, otherwise negative. 1 of 2 blood cultures abnormal on 10/17/18, apparently contamination. Bilateral lower extremity Venous duplex negative for DVT today CT of the chest performed 10/17/18: No pulmonary embolism
--- NOTE | 2018-10-24 16:38 | Ultrasound Report ---
BILATERAL LOWER EXTREMITY VENOUS DOPPLER HISTORY: Leg swelling. rule out DVT COMPARISON STUDY: None. FINDINGS: There is normal compressibility, flow, and augmentation within the bilateral lower extremit y deep venous systems. IMPRESSION: No DVT within the right or left lower extremity. Electronically signed by: Franklin Zhao M.D. 10/24/2018 4:37 PM
--- NOTE | 2018-10-24 17:21 | Oncology Consultation ---
Date of Consultation October 24, 2018 Assessment & Plan (1) Glioma of brain: 37-year-old male, Oncology diagnosis and treatment: - Low-grade astrocytoma, S/P resection in 1991, additional resection within 3 months. - Recurrent disease noted in 2009, S/P resection, final pathology at that time showed transforming into high-grade glioma. - Significant disease progression noted in May 2016 imaging study, received temozolomide and radiation treatment in in August 2016. - Received additional maintenance Temozolomide at 250 mg once-a-day for 5 days which was completed in October 2017. - Progression the disease noted in the brain in the July 2018. - Restarted higher dose of temozolomide in July 2018 initially at 250 mg once-a-day for 5 days, recently he completed 3rd cycle of Temozolomide at 320 mg once-a-day for 5 days on 10/20/2018. Now for the last 2 weeks he is on dapsone prophylaxis. Now he's admitted for increasing hypoxemia, no obvious cause identified, he is on oxygen treatment at 4 L per minute, no evidence of pulmonary embolism, no pulmonary infiltrates noted in the recent imaging studies, no evidence of DVT noted. Seen by cardiology and neurology today. He receives Temozolomide 5 days in a month which he recently completed.. No neutropenia at this time but I'm expecting gradual drop in the white blood cell count and neutrophil count in the next 2-3 weeks. Continue the current medical management including dapsone prophylaxis. Heath Boateng MD Hem/Onc History of Present Illness Attending Physician: Chucho Hyatt MD 37-year-old male, Oncology diagnosis and treatment: - Low-grade astrocytoma, S/P resection in 1991, additional resection within 3 months. - Recurrent disease noted in 2009, S/P resection, final pathology at that time showed transforming into high-grade glioma. - Significant disease progression noted in May 2016 imaging study, received temozolomide and radiation treatment in in August 2016. - Received additional maintenance Temozolomide at 250 mg once-a-day for 5 days which was completed in October 2017. - Restarted higher dose of temozolomide in July 2018 initially at 250 mg once-a-day for 5 days, recently he completed 3rd cycle of Temozolomide at 320 mg once-a-day for 5 days on 10/20/2018. - Recently on 10/10/2018 he was also started on dapsone prophylaxis. - He follows up with neuro-oncologist at [facility] (Dr. Epperson) where he is receiving her his current treatment with Temozolomide. Other neurological problem: - Hydrocephalus, S/P ENROLLMENT ADVISOR shunt placement in 2009. - Cerebral palsy. - Seizure disorder, he is on valproic acid. He came to [facility] ER on 10/23/2018 for increasing hypoxemia. He came to [facility] ER earlier on 10/17/2018 for increasing shortness of breath, had CT chest which showed no suspicious minds, there was no evidence of pulmonary embolism, now once again he came for the same problem with the low pulse ox. Receiving nasal cannula supplemental oxygen. I saw him at bedside, his mom was also at bedside, for the last one week noticed to have bilateral lower extremity leg edema, denies any increasing leg discomfort, no chest pain, has some mild dry cough, no fever, recently he was started on dapsone prophylaxis about 2 weeks back, no new seizure episode, ambulating with the help of the wheelchair Allergies Allergy/AdvReac Type Severity Reaction Status Date / Time Sulfa (Sulfonamide Allergy Severe RASH Verified 10/23/18 13:25 Antibiotics) Home Medications Home Medications Medication Instructions Recorded Confirmed Type metoprolol tartrate 150 mg PO BID 08/21/18 10/23/18 History omeprazole 20 mg PO QAM 08/21/18 10/23/18 History valproic acid 250 mg PO QPM 08/21/18 10/23/18 History valproic acid 500 mg PO QAM 08/21/18 10/23/18 History amoxicillin 2,000 mg PO DIRECTED PRN 10/17/18 10/23/18 History dapsone 100 mg PO QPM 10/17/18 10/23/18 History diazepam 1 applic [place] DIRECTED PRN 10/17/18 10/23/18 History lactobacillus combination no.4 1 cap PO QAM 10/17/18 10/23/18 History [Probiotic] multivitamin 1 tab PO QAM 10/17/18 10/23/18 History ondansetron 8 mg TRANSLINGUAL Q8H PRN 10/17/18 10/23/18 History polyethylene glycol 3350 [Miralax] 17 g PO DAILY PRN 10/17/18 10/23/18 History sennosides-docusate sodium [Senna 1 tab PO DAILY 10/17/18 10/23/18 History Plus] divalproex [Depakote] 250 mg PO PM 10/23/18 10/23/18 History divalproex [Depakote] 500 mg PO QAM 10/23/18 10/23/18 History Patient History Medical History Pneumonia Glioma of brain Cerebral palsy GERD (gastroesophageal reflux disease) Intellectual disability Seizure Surgical History History of brain shunt History of craniotomy Social History marital status: Single Current Living Situation: Parent Other Information That Helps Us Care for You: No Feels Safe at Home: Yes Safety Concerns: Feels Safe At This Time Smoking Status: Never smoker Hx Alcohol Use: No Hx Substance Use: No Beliefs That Will Affect Care: None Communication Ability: Effective Review of Systems GENERAL: No recent change in weight, weakness and fatigue present, no fever, sweats or chills. SKIN: No skin rash, no bruising. HEAD: No new or increasing headache, no dizziness. EYES: No recent change in the vision, no diplopia, EARS: No earache ,no tinnitus, NOSE: No epistaxis, No nasal discharge or stuffiness, MOUTH: No sores, no dysphagia, no hoarseness of voice, NECK: No lumps, No swelling in thyroid area. No stiffness. PULMONARY: dry cough present, shortness of breath present, no hemoptysis, no chest pain, No wheezing. CARDIOVASCULAR: No anginal chest pain, no PND, no orthopnea. No palpitation, bilateral leg edema. No syncope. GASTRIINTESTINAL: No abdominal pain, no nausea or vomiting. No diarrhea, mild constipation present. No blood in stool or black tarry stools. No abdominal distention. UROLOGIC: No burning urination. No hematuria. MUSCULOSKELETAL: No joint pain, No joint swelling, no muscle weakness. HEMATOLOGIC: No anemia, no bleeding disorder, No bruising. NEUROLOGIC: No new seizures, no focal weakness, no speech difficulty, No tingling or numbness of the extremities. PSYCHRIATRIC: No depression. No anxiety. No psychosis. Physical Exam 2 Vital Signs (Past 24 Hours): Last Vital Signs Temp 36.9 C 10/24/18 15:00 Pulse 72 10/24/18 15:00 Resp 18 10/24/18 15:00 BP 107/73 10/24/18 15:00 Pulse Ox 92 10/24/18 15:00 On exam: - Alert and oriented x3, well built man, not in any distress. Receiving cannula supplemental oxygen at 4 L/min. - HEENT: no icterus, mild pallor noted, Throat: Normal. - Neck: No palpable cervical lymphadenopathy. - Chest: clear to auscultation. - Abdomen: soft, nontender, no hepatomegaly, no splenomegaly. - No focal neuro deficit. - Extremities: no finger clubbing, bilateral pitting leg edema present. Results & Data Laboratory Results - WBC 5500, H&H of , Platelet count of 297,000, (10/23/2018) - BUN/creatinine: 8/0.9, - Normal liver function test. Diagnostic Findings - CT scan of the chest done on 10/17/2018 when he had evidence of hypoxemia showed no evidence of pulmonary embolism. No acute intrathoracic findings noted. - Chest x-ray (10/23/2018) > No acute process, some atelectatic changes noted in the left lower lobe with elevated left hemidiaphragm noted. - Bilateral lower extremity doppler evaluation (10/24/2018) > No evidence of DVT.
--- NOTE | 2018-10-24 19:31 | Hospitalist Progress Note ---
Date of Service October 24, 2018 delayed entry date of service as noted above Assessment & Plan (1) Hypoxia: Clear breath sounds bilaterally on auscultation CT chest: No pulmonary embolism Chest x-ray 1. No acute process. 2. Chronic subsegmental left basilar opacities suggest atelectasis/scarring with mild left hemidiaphragmatic elevation. Pulmonary consulted waiting for recommendations (2) Weakness: Could be secondary to chemotherapy monitor (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 Boateng consulted (4) ORTHOPEDIC DENTIST (ventriculoperitoneal) shunt status: Neurology consulted Dr. Nevarez (5) Hyponatremia: monitor (6) Cerebral palsy: Mental status at baseline per patient's mother (7) Seizure: Continue AEDs (8) GERD (gastroesophageal reflux disease): PPI Disposition Discharged to home with home health services Follow-up with primary care physician Dr Zaragoza on 11/01/18 at 11am Follow-up with neurosurgery in [facility] as scheduled Subjective seen resting in bed awake, alert states he feels tired otherwise denies shortness of breath, cough no headache, dizziness no other symptoms Physical Exam 2 Vital Signs (Past 24 Hours): Last Vital Signs Temp 37 C 10/24/18 19:19 Pulse 73 10/24/18 19:19 Resp 18 10/24/18 19:19 BP 105/71 10/24/18 19:19 Pulse Ox 96 10/24/18 19:19 Physical Exam: General- oriented x 2, not in distress, speaks in sentences with no effort or accessory muscle use Eyes- anicteric Neck- no JVD Lungs- clear BS BL no rales/wheezes Heart- normal rate, regular rhythm; no murmurs Abdomen- normal bowel sounds, nondistended, soft, nontender Extremities- no pretibial edema, no calf tenderness Neuro- alert, oriented x 2; no gross focal neurologic deficits Skin- warm & dry
[2018-10-24] MEDS: DIVALPROEX DELAY RELEASE 250 MG TABEC PO SCH (21:01)
[2018-10-25] MEDS: ALBUT/IPRATROP 3MG/0.5MG NEB 3 ML VIAL NEB SCH ×6 (03:13→23:23)
[2018-10-25] MEDS: HEPARIN SOD 5,000 UNIT/0.5 ML VIAL SQ SCH ×3 (06:31→20:55)
--- NOTE | 2018-10-25 10:01 | Cardiology Progress Note ---
Date of Service October 25, 2018 Assessment & Plan (1) Weakness: right atrial echodensity, explained based on review of patient's past history. Operative report from [facility] [place] describes revision of FREIGHT ELEVATOR ERECTOR shunt which was replaced with a vetriculoatrial shunt (cerebral ventricle to right atrium of heart). No need for KYLE. Agree with repeat blood cultures. No cardiomyopathy on echo. Subjective CC: follow up generalized weakness, echodensity noted in RA on echo Subjective: pt without complaints. Pulse ox in mid 90's in bed with forehead monitoring probe. Denies chest pain. Physical Exam 2 Vital Signs (Past 24 Hours): Last Vital Signs Temp 36.9 C 10/25/18 07:35 Pulse 70 10/25/18 07:35 Resp 20 10/25/18 07:35 BP 106/72 10/25/18 07:35 Pulse Ox 91 10/25/18 07:35 Constitutional: cooperative; not in distress Respiratory: normal respiratory effort, lungs clear to auscultation Cardiovascular: RRR, no murmur, no edema Gastrointestinal (Abdomen): normal bowel sounds, soft, nontender, no hepatosplenomegaly
[2018-10-25] MEDS: LACTOBACILLUS ACIDOPHILUS (FLORANEX) TAB PO SCH (10:55)
[2018-10-25] MEDS: DIVALPROEX DELAY RELEASE 500 MG TAB PO SCH (10:55)
[2018-10-25] MEDS: METOPROLOL TARTRATE 50 MG TAB PO SCH ×2 (10:55→20:54)
[2018-10-25] MEDS: MULTIVITAMIN TAB PO SCH (10:56)
[2018-10-25] MEDS: PANTOprazole 40 MG TAB PO SCH (10:56)
[2018-10-25] MEDS: DOCUSATE SODIUM/SENNA 50/8.6MG TAB PO SCH (10:56)
--- NOTE | 2018-10-25 14:38 | Neurology Progress Note ---
Date of Service October 25, 2018 Assessment & Plan (1) AIRCRAFT DISPATCHER (ventriculoperitoneal) shunt status: 1. low O2 stat evaluate by cardiology and pulmonary 2. shunt on right pumping left looks depressed 3. CT head may help with comparison however he is scheduled for a MRI with 3D at [place] October 30 4. PT/OT for discharge needs 5. continue current medication regime 6. valproic acid level therapeutic should follow up as scheduled with MRI [place] will sign off for now will be available as needed Supervising Physician Co-Signing Physician Notes I have seen and discussed above patient with Dr Sorin Nevarez, neurology I have seen at him today, examined him briefly, reviewed his chart discussed the above case with Roxanna MCCLELLAN. He is improved his oxygenation is adequate as long as he has nasal oxygen the abnormality on echocardiogram proved to be the tip of his ventricular jugular shunt which have been revised when the ventriculoperitoneal shunt was dysfunctional his chest x-rays etc. have shown no evidence for pulmonary intraparenchymal disease the cause of his hypoxemia therefore remains unestablished but I suspect is the primary cause for his complaints of weakness as today when his oxygenation is back to nearly and I assume is his baseline, his strength etc. are all back to what I assume is "normal" given his underlying condition. We will check a CPK just to be certain there was no evidence for myopathy but frankly I would find this very unlikely. At this point neurology is going to sign off unless he becomes clinically unstable again. He may well have a central sleep apnea issue as he has extensive structural disease involving the central nervous system. He may require an overnight outpatient sleep study to further investigate this. Pulmonary medicine will of course have to advise regarding further evaluations along these lines. Sorin Doyle is a 37 year old male PMH- CP, intellectual disability, hydrocephalus, AIRCRAFT DISPATCHER shunt, astrocytoma treated with resection and radiation that was low-grade astrocytoma removed in 1981 x 2. He had recurrence in 2009, with a transformation into high-grade glioma. Imaging studies in May 2016 showed significant disease progression and he received combined chemotherapy with temozolomide 120 mg daily along with radiation treatment and his chemotherapy was reduced to 6 weekly because of low platelet count in April 2017. Completed total 1 year of temozolomide in October 2017 and again recent brain imaging studies in July 2018 showed evidence of recurrent disease and he was restarted back on temozolomide 250 mg once daily for 5 days in a 28-day cycle, this cycle he started on the Oct and he was also recently started on dapsone because his platelets were low, about 120 in the last week of September. He was given 1 month supply of dapsone, started about 14 days ago. He came in on 10/17 ED for weak and tired. He had 1/2 Bottles of +Blood Cx as well. He returns today secondary to being weak and tired. His home nurse noted his O2 low 70s and directed them to the ER. He is sleeping this afternoon. His mom states he is about the same. they are waiting on pulmonary at this point. denies CP, abdominal pain, N, V. Physical Exam 2 Vital Signs (Past 24 Hours): Last Vital Signs Temp 36.9 C 10/25/18 11:49 Pulse 78 10/25/18 11:49 Resp 20 10/25/18 11:49 BP 100/66 10/25/18 11:49 Pulse Ox 98 10/25/18 11:49 Gen: alert NAD arouses easily lungs course breath sounds CV RRR right hand grasp and biceps triceps 5/5, left hand grasp 2/5 digit contracture biceps triceps 4/5 neuro: knows he is in a hospital
--- NOTE | 2018-10-25 18:08 | Hematology/Oncology Prog Note ---
Date of Service October 25, 2018 Assessment & Plan (1) Glioma of brain: 37-year-old male, Oncology diagnosis and treatment: - Low-grade astrocytoma, S/P resection in 1991, additional resection within 3 months. - Recurrent disease noted in 2009, S/P resection, final pathology at that time showed transforming into high-grade glioma. - Significant disease progression noted in May 2016 imaging study, received temozolomide and radiation treatment in in August 2016. - Received additional maintenance Temozolomide at 250 mg once-a-day for 5 days 39 year which was completed in October 2017. - Progression the disease noted in the brain in the July 2018. - Restarted higher dose of temozolomide in July 2018 initially at 250 mg once-a-day for 5 days, recently he completed 3rd cycle of Temozolomide at 320 mg once-a-day for 5 days on 10/20/2018. Now admitted for hypoxemia, no obvious cause identified, no evidence of DVT noted, no pallor embolism noted. He is receiving nasal cannula supplemental oxygen, otherwise hemodynamically stable, I saw him at bedside, sitting comfortable in the bed, denies any new abdominal symptoms, no new bony symptom, still complains of mild shortness of breath, reviewed his blood workup done today, WBC count is around 4900, hemoglobin level 10.7, platelet count 281,000. No further cardiac workup is indicated as per the cardiology. Recently he received 5 days of Temozolomide, completed that treatment on 2017. Will continue dapsone prophylaxis. Monitor blood count. No further oncology recommendation at this time. Heath Boateng MD Hem/Onc Physical Exam 2 Vital Signs (Past 24 Hours): Last Vital Signs Temp 36.7 C 10/25/18 14:45 Pulse 74 10/25/18 15:11 Resp 16 10/25/18 15:11 BP 96/63 L 10/25/18 14:45 Pulse Ox 96 10/25/18 15:11
--- NOTE | 2018-10-25 19:10 | Hospitalist Progress Note ---
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 monthly Heme on consulted (4) OIL PIT ATTENDANT (ventriculoperitoneal) shunt status: Neurology consulted Overall stable Scheduled for MRI on follow-up with the neurosurgeon (5) Hyponatremia: Fluid restriction Monitor Labs (6) Cerebral palsy: Mental status at baseline per patient's mother (7) Seizure: Continue AEDs (8) GERD (gastroesophageal reflux disease): PPI Subjective seen with mother at bedside patient states he feels somewhat better , just tired Denies shortness of breath, cough, chest pain No headache no dizziness Appetite is fair No other symptoms Physical Exam 2 Vital Signs (Past 24 Hours): Last Vital Signs Temp 36.7 C 10/25/18 14:45 Pulse 74 10/25/18 15:11 Resp 16 10/25/18 15:11 BP 96/63 L 10/25/18 14:45 Pulse Ox 96 10/25/18 15:11 Physical Exam: General- oriented x 2, not in distress, speaks in sentences with no effort or accessory muscle use Eyes- anicteric Neck- no JVD Lungs- clear breath sounds bilaterally No crackles no wheezing Heart- normal rate, regular rhythm; no murmurs Abdomen- normal bowel sounds, nondistended, soft, nontender Extremities- no pretibial edema, no calf tenderness Neuro- alert, oriented x 2; no gross focal neurologic deficits Skin- warm & dry Results & Data Laboratory Results Laboratory Results - last 24 hr 10/25/18 15:57 Total Creatine Kinase 65
[2018-10-25] MEDS ORDERED: DAPSONE 25 MG TAB PO SCH (21:00)
[2018-10-25] MEDS: DIVALPROEX DELAY RELEASE 250 MG TABEC PO SCH (21:13)
--- NOTE | 2018-10-25 23:39 | Consultation Report ---
DATE OF CONSULTATION: 10/25/2018 Pulmonary Medicine Consultation. REASON FOR CONSULTATION: Hypoxemia. HISTORY OF PRESENT ILLNESS: A 37-year-old white male whose past medical history is significant for cerebral palsy, intellectual disability, hydrocephalus, VA shunt, astrocytoma, treated with resection and radiation in 1981 and additional resection 3 months later. 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 He received chemotherapy with temozolomide 120 mg daily along with radiation treatment and continued chemotherapy. He completed a total of 1 year of temozolomide in 10/2017. Unfortunately in 07/2018, he had recurrent disease and was started back on that drug orally 250 mg daily for 5 days in a 28-day cycle. He was also started on dapsone as his platelet count was low. He has been fatigued and tired. His primary care physician is Dr. Daily although apparently he had to be admitted when his O2 saturation was in the low 70s and he was directed to the ER. Upon further questioning, the patient states he fell but cannot give me any more history concerning that fall or his symptoms. A chest x-ray on admission showed chronic subsegmental left basilar opacity suggesting atelectasis or scarring, with mild left hemidiaphragmatic elevation. He has been seen by Dr. Hurley from the cardiac standpoint. Echocardiogram showed normal biventricular systolic function. There was an echodensity in the right atrium. This may represent the distal portion of his ventriculoperitoneal shunt, which was placed into the internal jugular vein and may have been infected at the intravascular side at the level down to the right atrium. Dr. Hurley felt that the echocardiogram was compatible with the distal portion of the catheter. Apparently, a recent CTA showed no evidence of pulmonary embolic disease. He has no cough. He denies feeling dyspneic, and he certainly does not appear to be in any distress. PHYSICAL EXAMINATION: VITAL SIGNS: Currently, blood pressure 100/66, pulse 78 and regular, respiratory rate 20, temperature 36.9, and O2 saturation 98% on 2 L. SKIN: Without lesion. HEENT: Atraumatic and normocephalic. PERRLA. EOMI. Conjunctivae pale. Sclerae are nonicteric. Fundi poorly visualized. Neck veins are not distended at 45 degrees. No lymphadenopathy in the supraclavicular or infraclavicular region. LUNGS: Distant in the P and A. No rales or wheezes. Decreased breath sounds, left base. CARDIAC: Regular rate and rhythm. I do not appreciate a gallop. ABDOMEN: Soft, protuberant. No evidence for hepatosplenomegaly. EXTREMITIES: No pedal edema, clubbing, or cyanosis. NEUROLOGICAL: Without overt lateralizing signs. LABORATORY DATA: White count 4900, H and H 10.7 and 32 with macrocytic indices, this is down from 13.7 and 37.9 on 08/21/2018, platelet count is 281,000. IMAGING: CTA done on the was reviewed and showed no evidence of pulmonary thromboembolic disease, with no acute intrathoracic findings. Chest x-ray, 10/23/2018, left basilar opacity suggesting atelectasis/scarring. Venous Doppler: No DVT within the right or left lower extremity. Blood culture: Micrococcus species. PRP within normal limits. Valproic acid level acceptable. ASSESSMENT: A 37-year-old with cerebral palsy and previous diagnosis of glioma, currently on chemotherapy with completed radiation therapy and with possible infected catheter situated in the right atrium, presents with hypoxemia and weakness. Currently, patient does not exhibit any sign of respiratory distress and appears to be well saturated on current O2 supplementation. His hemodynamics are stable, and his lungs are relatively clear with only minimal amount of atelectasis at the left base. I have nothing further to add at this point in time but will follow along with you.
[2018-10-26] MEDS: ALBUT/IPRATROP 3MG/0.5MG NEB 3 ML VIAL NEB SCH ×3 (03:24→11:15)
[2018-10-26] MEDS: HEPARIN SOD 5,000 UNIT/0.5 ML VIAL SQ SCH ×2 (06:28→14:22)
[2018-10-26] MEDS: DIVALPROEX DELAY RELEASE 500 MG TAB PO SCH (08:11)
[2018-10-26] MEDS: METOPROLOL TARTRATE 50 MG TAB PO SCH (08:29)
[2018-10-26] MEDS: LACTOBACILLUS ACIDOPHILUS (FLORANEX) TAB PO SCH (08:29)
[2018-10-26] MEDS: PANTOprazole 40 MG TAB PO SCH (08:30)
[2018-10-26] MEDS: MULTIVITAMIN TAB PO SCH (08:30)
[2018-10-26] MEDS: DOCUSATE SODIUM/SENNA 50/8.6MG TAB PO SCH (08:30)
--- NOTE | 2018-10-26 11:54 | Hospitalist Progress Note ---
Date of Service October 26, 2018 Assessment & Plan (1) Hypoxia: Clear breath sounds bilaterally on auscultation CT chest: No pulmonary embolism Chest x-ray 1. No acute process. 2. Chronic subsegmental left basilar opacities suggest atelectasis/scarring with mild left hemidiaphragmatic elevation. Patient was able to be weaned down from 4 down to 2 L O2 via nasal cannula Patient denies shortness of breath or changes in breathing, patient's mother says that patient's respiratory status is at baseline Evaluated by pulmonary service Dr. Anaya No clear etiology of mild hypoxia noted at this time Possible explanation could be atelectasis, patient's lung mechanics At this point would recommend 2 L of oxygen via nasal cannula to maintain O2 sats more than 90% Continue incentive spirometry Continue follow-up as an outpatient Yesterday, patient taken off oxygen and on room air was satting to 84% to 86% Today he remains at 3 L of nasal cannula Pulmonary consulted and awaiting recommendations (2) Weakness: Could be secondary to chemotherapy Chemotherapy dose recently increased Associated with poor appetite, improving per month Patient's mother declines placement to rehab or fdc, she prefers home health services and PT OT (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 Boateng consulted Continue outpatient follow-up with Dr. Boateng (4) RIVER BOAT CAPTAIN (ventriculoperitoneal) shunt status: Neurology consulted Dr. Nevarez Neurologically stable at this time Scheduled for MRI on follow-up with the neurosurgeon on Tuesday Continue follow-up with neurosurgery service (5) Hyponatremia: stable in the low 130s (6) Cerebral palsy: Mental status at baseline per patient's mother (7) Seizure: Continue AEDs (8) GERD (gastroesophageal reflux disease): PPI Disposition Discharged to home with home health services Follow-up with primary care physician Dr Zaragoza on 11/01/18 at 11am Follow-up with neurosurgery in as scheduled Subjective seen on ff up for hypoxia, weakness seen with patient's mother at the bedside states he feels better today still on 2 L via nasal cannula o 2 sat ~92% when off oxygen supplement, o2 sats 88-89% otherwise no other new symptoms/complaints as per patient's mother she states patient is better and would like him to be discharged today Physical Exam 2 Vital Signs (Past 24 Hours): Last Vital Signs Temp 36.7 C 10/26/18 11:25 Pulse 87 10/26/18 11:25 Resp 16 10/26/18 11:25 BP 89/64 L 10/26/18 11:25 Pulse Ox 93 10/26/18 11:25 Physical Exam: General- oriented to person, alert/awake, not in distress, speaks in sentences with no effort or accessory muscle use Eyes- anicteric Neck- no JVD Lungs- clear breath sounds bilaterally No wheezing, no rales bilaterally Heart- normal rate, regular rhythm; no murmurs Abdomen- normal bowel sounds, nondistended, soft, nontender Extremities- no pretibial edema, no calf tenderness Neuro- alert, oriented to person; no gross focal neurologic deficits Skin- warm & dry Results & Data Laboratory Results Laboratory Results - last 24 hr 10/25/18 15:57 Total Creatine Kinase 65
--- NOTE | 2018-10-26 15:57 | Progress Note ---
DATE: 10/26/2018 Chart reviewed, patient examined. I had a discussion both with the patient and his mother who was in attendance. She has been the primary caregiver. He is currently under treatment for a malignant glioma with chemoradiation. An MRI scan of the brain apparently has been scheduled for [facility] in [place] this coming week. We discussed the reasons for his hypoxemia. She states for the past several weeks, he has been listless, weak, will not get out of bed and do any walking. He has not looked dyspneic since I have seen him here in the hospital nor in discussion with the hospitalist, Dr. Hyatt. CAT scan of the chest was reviewed and showed no evidence for pulmonary thromboembolic disease. There was no acute process. There may be some mild chronic subsegmental left basilar opacity suggesting atelectasis with perhaps volume loss and left hemidiaphragmatic elevation. He has been on oxygen at 2 L continually, and when they take him off the oxygen, he desaturates into the mid 80 percentile range. He is in no respiratory distress. He has minimal cough, and she denies chronic aspiration or choking episodes when he eats. He has been a nonsmoker and has had minimal secondary exposure although they do heat the house with wood burner. CT scan did suggest, in addition to subsegmental atelectasis at the left base, there were some mild emphysematous changes. At this point in time, I was not really clear in my own mind how to pursue with the workup. It is possible that the patient has a right to left intrapulmonary shunt that is difficult to explain. It is also possible he has some degree of mucoid impaction to explain the elevation of left hemidiaphragm and atelectasis seen although it looks minor. I cannot be sure that he does not have a paralyzed left hemidiaphragm from the idiopathic etiology, but we have not done a sniff test or a fluoroscopy to see if the diaphragm indeed exhibits paradoxical motion. At this point in time, the patient's mother wishes to take him home and would like arrangements for home oxygen to be made, and I passed that word onto the hospitalist service. I gave her my card to see us in the clinic if she so wishes for her son. She herself is a patient of Dr. James.
--- NOTE | 2018-11-02 09:08 | Discharge Summary ---
Date of Service November 02, 2018 Admission HPI Per Admitting Provider 37-year-old male with past medical history significant for cerebral palsy, intellectual disability, hydrocephalus, VA shunt, astrocytoma treated with resection and radiation that was low-grade astrocytoma removed in 1981. Had additional resection within 3 months. After that, he did quite well, had a recurrent disease in 2009, status post resection and final pathology at that time showing transformation into high-grade glioma. Imaging studies in May 2016 showed significant disease progression and he received combined chemotherapy with temozolomide 120 mg daily along with radiation treatment and his chemotherapy was reduced to 6 weekly because of low platelet count in April 2017. Completed total 1 year of temozolomide in October 2017 and again recent brain imaging studies in July 2018 showed evidence of recurrent disease and he was restarted back on temozolomide 250 mg once daily for 5 days in a 28- day cycle, this cycle he started on the od Oct 2018 and he was also recently started on dapsone because his platelets were low,about 120 in the last week of September. He was given 1 month supply of dapsone, started about 14 days ago. He came in on 10/17 and was DCd 10/18 for the same reason-weak and tired. He had 1/2 Bottles of +Blood Cx as well. He returns today secondary to being weak and tired. He was supposed to have a follow-up appoint with Dr. Daily tomorrow, when the visiting nurse saw him today she checked his pulse ox on room air and it was in the low 70s showed she directed them to the ER. This is a 37-year-old male with history of astrocytoma status post resection, which converted to high-grade glioma, currently on chemo, presents with hypoxia and weakness ALLERGIES: BACTRIM, SULFA ANTIBIOTICS. PAST MEDICAL HISTORY: Bronchitis, Astrocytoma/Brain Glioma, Verebral palsy, Seizures, GERD, Hydrocephalus, Pneumonia, SBO, Dehydration PAST SURGICAL HISTORY: Central line placement. 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 SOCIAL HISTORY: Single. No smoking, no alcohol, no drug use. Lives with his mother. FAMILY HISTORY: Significant for sister has asthma, father has hypertension. Admission Exam Per Admitting Provider GENERAL: The patient is of moderate build, not in acute distress. VITAL SIGNS: Temperature 36.7, respiratory rate 18, pulse 74, blood pressure was 127/84, oxygen 88% on room air and 95% on 2 liters. HEENT: No pallor, no icterus. Pupils equal, round, and reactive to light. NECK: No JVD, no neck mass, no carotid bruits. CARDIOVASCULAR: S1, S2 heard, regular rate and rhythm, no murmur, no gallop. RESPIRATORY SYSTEM: Clear to auscultation bilaterally. No wheezing, no crackles. ABDOMEN: Soft, bowel sounds present. Mild discomfort. No guarding, no rigidity, no distention. CENTRAL NERVOUS SYSTEM: Cranial nerves II-XII grossly intact. Nonfocal. EXTREMITIES: Mild pedal edema present and no erythema seen. Principal Diagnosis HYPOXIA Discharge Exam Vital Signs (Past 24 Hours): Last Vital Signs Temp 36.7 C 10/26/18 11:25 Pulse 87 10/26/18 11:25 Resp 16 10/26/18 11:25 BP 89/64 L 10/26/18 11:25 Pulse Ox 93 10/26/18 11:25 Physical Exam: General- oriented to person, alert/awake, not in distress, speaks in sentences with no effort or accessory muscle use Eyes- anicteric Neck- no JVD Lungs- clear breath sounds bilaterally No wheezing, no rales bilaterally Heart- normal rate, regular rhythm; no murmurs Abdomen- normal bowel sounds, nondistended, soft, nontender Extremities- no pretibial edema, no calf tenderness Neuro- alert, oriented to person; no gross focal neurologic deficits Skin- warm & dry Discharge Data Allergies Allergy/AdvReac Type Severity Reaction Status Date / Time Sulfa (Sulfonamide Allergy Severe RASH Verified 10/23/18 13:25 Antibiotics) Consultations 10/23/18 17:36 Consult Cardiology Routine Consult Hematology Routine Consult Neurology Stat Consult Pulmonology Routine Ordered Studies XR chest 1V portable HISTORY: 37 years-old Male Dyspnea acute shortness of breath COMPARISON: Chest radiograph 10/17/2018 TECHNIQUE: Portable AP view of the chest FINDINGS: Patient is rotated to the left. Ventricular shunt catheter is again noted projecting over the right neck and right chest. Unchanged lucent portion of the catheter about the right neck. Mild left and left medical elevation with subsegmental left basilar opacities, unchanged suggesting atelectasis/scarring. Cardiomediastinal and hilar silhouettes are within normal limits. No pneumothorax or large pleural effusion. The right lung is clear. Lungs are mildly hypoinflated. Degenerative changes of the shoulders and spine. IMPRESSION: 1. No acute process. 2. Chronic subsegmental left basilar opacities suggest atelectasis/scarring with mild left hemidiaphragmatic elevation. 10/24/18 15:20 US venous doppler LE BI Stat BILATERAL LOWER EXTREMITY VENOUS DOPPLER HISTORY: Leg swelling. rule out DVT COMPARISON STUDY: None. FINDINGS: There is normal compressibility, flow, and augmentation within the bilateral lower extremity deep venous systems. IMPRESSION: No DVT within the right or left lower extremity. Hospital Course (1) Hypoxia: (1) Hypoxia: Clear breath sounds bilaterally on auscultation CT chest: No pulmonary embolism Chest x-ray 1. No acute process. 2. Chronic subsegmental left basilar opacities suggest atelectasis/scarring with mild left hemidiaphragmatic elevation. Patient was able to be weaned down from 4 down to 2 L O2 via nasal cannula Patient denies shortness of breath or changes in breathing, patient's mother says that patient's respiratory status is at baseline Evaluated by pulmonary service Dr. Anaya No clear etiology of mild hypoxia noted at this time Possible explanation could be atelectasis, patient's lung mechanics, dapsone? 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 Boateng consulted Continue outpatient follow-up with Dr. 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 Nevarez Neurologically stable at this time Scheduled for MRI on follow-up with the neurosurgeon on Tuesday Continue follow-up with [facility] neurosurgery service (5) Hyponatremia: stable in the low 130s (6) Cerebral palsy: Mental status at baseline per patient's mother (7) Seizure: Continue AEDs (8) GERD (gastroesophageal reflux disease): PPI Total Time Total Time Spent Total Time Spent (In Minutes): 40 minutes Discharge Plan Discharge Items Patient Disposition: Home - Home Health Services Reason For Visit: WEAKNESS AND HYPOXIA Discharge Diagnosis: Weakness, hypoxia Discharge Goals: Diagnostic testing and Therapeutic intervention Activity: As commented below Activity Comment: No heavy exertion until reevaluated by primary care physician Lifting: Wait until after follow-up appointment Exercise/Sports: Wait until after follow-up appointment Non-emergency contact: Primary Care Provider Call non-emergency contact if: you have any medication questions and your symptoms worsen Diet: Regular Addtl Provider Instructions: Follow up with primary care physician Dr. Zaragoza (associate of Dr. Daily) on November 01, 2018 at 11 AM. Follow-up with neurosurgery as scheduled. Follow-up with oncologist as scheduled. Always use oxygen supplement 2 L via nasal cannula to maintain oxygen saturation more than 90% at all times. Physical primary care physician or return to ER immediately if with recurrence of symptoms, increasing shortness of breath, oxygen saturation persistently below 90%, fever or chills, increasing weakness or poor appetite. Prescriptions: Continue metoprolol tartrate 100 mg Tablet 150 mg PO BID RF: 0 valproic acid 250 mg Capsule 250 mg PO QPM RF: 0 valproic acid 250 mg Capsule 500 mg PO QAM RF: 0 omeprazole 20 mg Capsule,Delayed Release(Dr/Ec) 20 mg PO QAM RF: 0 divalproex [Depakote] 250 mg Tablet,Delayed Release (Dr/Ec) 250 mg PO PM RF: 0 divalproex [Depakote] 500 mg Tablet,Delayed Release (Dr/Ec) 500 mg PO QAM RF: 0 multivitamin Tablet 1 tab PO QAM RF: 0 sennosides-docusate sodium [Senna Plus] 8.6-50 mg Tablet 1 tab PO DAILY RF: 0 amoxicillin 500 mg Tablet 2,000 mg PO DIRECTED PRN (Reason: Prior to Dental Appointments) RF: 0 ondansetron 8 mg tablet,disintegrating 8 mg Translingual Q8H PRN (Reason: Nausea) RF: 0 polyethylene glycol 3350 [Miralax] 17 gram/dose Powder 17 g PO DAILY PRN (Reason: Constipation) RF: 0 diazepam 5-7.5-10 mg kit 1 applic [place] DIRECTED PRN (Reason: Seizure Activity) RF: 0 lactobacillus combination no.4 [Probiotic] 3 billion cell Capsule 1 cap PO QAM RF: 0 Discontinued dapsone 100 mg tablet 100 mg PO QPM RF: 0 Stand-Alone Forms: [facility] Discharge Orders: Discharge Order (Routine); Ordered 10/26/18 Ordered By: Chucho Hyatt Admission Data Admit Date/Time: 10/23/18 16:20 Attending Provider: Chucho Hyatt Admit Provider: Kwasi Villatoro Primary Care Provider: Eliseo Daily Other Providers: Roxanna Mtz ; Sorin Nevarez ; Dean Jim ; Roxanna Salguero ; Tyrese Jacob ; Lance Cee ; Braden [place] ; Robin Hurley ; Gigi Barrera ; Chong Farooq ; Mainor Manrique ; Gilberto Velasquez ; Ave Sheppard ; Roxanna Jim ; Emma Emery ; Heath Boateng ; Jordan Ding ; Kwasi Villatoro ; Mesfin Anaya ; Cody Green ; Carola Michel ; Don Rao ; Maria T Curran ; Rafael James ; Yadira Gavin ; Maryse Grewal. ; Fabien Narvaez. ; Ashley Crews ; Braden Koch ; Robert Hall Service: Medical Other Interventions: Discharge Summary Assessment (RN) Last Done: 10/26/18 14:15 DC Date/Time DO NOT enter until pt leaves facility: 10/26/18 15:15
--- NOTE | 2018-11-21 11:04 | Coding Query ---
A supporting diagnosis is required for the test/procedure performed on this patient in order for us to be reimbursed by the patient's insurance. Please provide a supporting diagnosis for the following test/procedure listed below next to the test name along with your signature. *If there is no additional diagnosis for this patient that would support the following test/procedure please document that below next to the test/procedure. Test(s)/Procedure(s) that require a supporting diagnosis: exertional shortness of breath, hypoxia * US VENOUS DOPPLER LE BI DIAGNOSIS: Provider Signature: ___jjbradbury Date: __11/23/17_ ____ Thank you Maria T Turcios [facility] Information Management Once completed, please kindly fax back to [phone] For questions please call [phone] [facility]ERYuliana
== END 2018-10-26 15:15 | disposition home health service (06) ==
LOC: ED 12:16 → 4E 12:16 → SUATTDRO 16:20 → 4E 17:04